=== PATIENT | female | born 1935 | race Caucasian/White ===

== ENCOUNTER → 2018-06-28 13:06 | Outpatient (CLI) | payer MEDICARE ==
[2010-12-24 06:39] VITALS: BMI 26.3
== END | disposition home or self-care (01) ==
LOC: D.MRI 13:06
DX: S83.272A Complex tear of lateral meniscus, current injury, left knee, initial encounter (principal); X58.XXXA Exposure to other specified factors, initial encounter

== ENCOUNTER 2018-07-25 08:35 | Day surgery (SDC) | payer MEDICARE ==
[2018-07-22 09:32] LABS: BASOPHILS 0.7 % (0-2); EOSINOPHILS 2.9 % (0-7); HEMATOCRIT 40.2 % (36.0-48.0); IMMATURE GRANULOCYTES 0.1 % (0-5); LYMPHOCYTES 20.2 % (15-50); MCH 30.1 pg (26.0-34.0); MCHC 32.3 g/dL (31.0-37.0); MCV 93.1 fL (80.0-100.0); MEAN PLATELET VOLUME 10.4 fL (7.4-10.4); MONOCYTES 9.7 % (2-11); NEUTROPHILS 66.4 % (40-80); PLATELET COUNT 240 10x3/uL (130-400); RBC 4.32 10x6/uL (4.00-5.40); WBC 6.8 10x3/uL (4.8-10.8)
[2018-07-22 09:42] LABS: ANION GAP 10.6 mmol/L (8-16); CALCIUM 9.1 mg/dL (8.5-10.1); CARBON DIOXIDE 30.5 mmol/L (21.0-32.0); CREATININE - SERUM 1.4 mg/dL (0.6-1.3); POTASSIUM - SERUM 4.1 mmol/L (3.5-5.1)
[~2018-07-25] VITALS: Ht 170.2 cm; Wt 73.5 kg
--- NOTE | ~2018-07-25 | OP ---
PATIENT NAME: HERNAN SAWYER MEDICAL RECORD: [id number] :33 LOCATION:[facility] ADMISSION DATE: SURGEON: CHAN OSULLIVAN MD DATE OF OPERATION: 07/25/2018 PREOPERATIVE DIAGNOSIS: Medial meniscus tear of the left knee. POSTOPERATIVE DIAGNOSES: 1. Medial meniscus tear of the left knee. 2. Lateral meniscus tear of the left knee. SURGEON: Chan Osulliavn MD ANESTHESIA: General. INTRAOPERATIVE COMPLICATIONS: None. SUMMARY OF PATHOLOGIC FINDINGS: While the patient did have a complex tear of the posterior horn of the medial meniscus, the patient also had a very complex tear of the lateral meniscus with the tear exceeding to and into the popliteal fossa. OPERATIVE SUMMARY IN DETAIL: After obtaining the appropriate preoperative orthopedic surgery consent as well as anesthetic consultation, evaluation, and clearance, the patient was brought to the operating room and placed on the operating table in the supine position. After adequate general laryngeal mask airway was administered, a tourniquet was placed about the proximal aspect of the left lower extremity. The left lower extremity was then prepped and draped in routine sterile fashion. The leg was elevated, exsanguinated, and the tourniquet was inflated to 350 mmHg. Routine inferolateral portal was established followed by superomedial portal and inferomedial portal. Diagnostic arthroscopy revealed the above findings. Attention was first turned to the medial meniscus. The medial meniscus was debrided back to stable meniscal elements with only a minimal complex tear of the medial meniscus. 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 Attention was then turned to the lateral meniscus. With the knee in a [id number] position, lateral meniscus tearing was noted and again there were areas of grade I and II chondromalacia of the medial femoral condyle; however, no area of III or IV or full-thickness fissuring was noted. Combination of meniscotomes as well as arthroscopic resector was utilized to debride the meniscus with what I would call a near subtotal lateral meniscectomy, leaving portions of the anterolateral horn as well as the posteromedial horn of the lateral meniscus. Having completed this, the patient was insufflated with 30 cc of 0.25% Marcaine plain. She has a noted ALLERGY TO DEPO-MEDROL, so this was not used. The arthroscopy portals were closed in routine interrupted fashion using 4-0 Prolene. Sterile dressings were applied. The patient was awakened and taken to the recovery room in stable condition. All final needle and sponge counts were correct. TRANSINT:[id number] Voice Confirmation ID: [id number] DOCUMENT ID: [id number] OPERATIVE REPORT [id number] HERNAN SAWYER MD, [facility] CC: [id number] DICTATION DATE: 07/28/18 0645 [facility] APPLICATION SPECIALIST: 07/28/18 1553 [facility] 07/25/18 [id number] [place] [address]
[~2018-07-25 08:35] MED LIST: AMBIEN10 MG PO; LEVOTHYROXINE75 MCG PO; NORVASC5 MG PO; OMEPRAZOLE20 M1 PO
[2018-07-25 09:48] VITALS: BP 129/66; Ht 170.2 cm; Wt 73.5 kg
[2018-07-25] MEDS ORDERED: NORCO 10-325 TA1 TAB PO (13:50)
== END 2018-07-25 16:00 | disposition home or self-care (01) ==
LOC: D.OPS 08:35 → D.PAN 11:00 → D.OPS 11:00 → D.PAN 12:15 → D.OPS 16:00 → D.PAN 16:00
PROVIDERS: Anesthesiology
DX: S83.232A Complex tear of medial meniscus, current injury, left knee, initial encounter (principal); S83.272A Complex tear of lateral meniscus, current injury, left knee, initial encounter; Z01.812 Encounter for preprocedural laboratory examination